=== PATIENT | male | born 1945 ===

== ENCOUNTER 2017-06-24 12:00 | Inpatient (IN) | payer OTHER ==
[~2017-06-24] VITALS: Ht 160 cm; Wt 81.6 kg
[2017-06-24] MEDS ORDERED: ATORVASTATIN CA10 MG PO (13:41)
[2017-06-24] MEDS ORDERED: NIFEDIPINE ER30 M1 PO (13:41)
[2017-06-24] MEDS ORDERED: FINASTERIDE5 MG PO (13:42)
[2017-06-24] MEDS ORDERED: PANTOPRAZOLE SO40 MG PO (13:43)
[2017-06-24] MEDS ORDERED: TAMS0.4C PO (13:43)
[2017-06-24] MEDS ORDERED: LOSARTAN POTAS100 MG PO (13:43)
[2017-06-24] MEDS ORDERED: METFORMIN HCL500 MG PO (13:44)
[2017-07-03] MEDS ORDERED: DOCUSATE SODIU100 MG PO (10:51)
[2017-07-03] MEDS ORDERED: CLONAZEPAM1 MG PO (10:52)
[2017-07-03] MEDS ORDERED: PERCOCET 5-3251 EACH PO (10:52)
== END 2017-07-03 12:45 | DRG 454 ==
LOC: PED 07-02 05:00 → O/R 07-02 05:00 → SURH 07-02 07:00 → EDBD 07-02 12:00 → SURH 07-02 12:00 → PED 07-02 14:12
PROVIDERS: Orthopaedic Surgery Orthopaedic Surgery of the Spine
PROC: 0RG2071 Fusion of 2 or more Cervical Vertebral Joints with Autologous Tissue Substitute, Posterior Approach, Posterior Column, Open Approach (ICD-10-PCS; 2017-07-02)
PROC: 0RT30ZZ Resection of Cervical Vertebral Disc, Open Approach (ICD-10-PCS; 2017-07-02)
PROC: 07DS3ZZ Extraction of Vertebral Bone Marrow, Percutaneous Approach (ICD-10-PCS; 2017-07-02)
PROC: 0RG20A0 Fusion of 2 or more Cervical Vertebral Joints with Interbody Fusion Device, Anterior Approach, Anterior Column, Open Approach (ICD-10-PCS; principal; 2017-07-02 07:00)
DX: M50.01 Cervical disc disorder with myelopathy, high cervical region (principal); M47.12 Other spondylosis with myelopathy, cervical region; E11.9 Type 2 diabetes mellitus without complications; I10 Essential (primary) hypertension